=== PATIENT | female | born 1980 | race Caucasian/White ===

== ENCOUNTER 2016-05-05 06:24 | Inpatient (IN) | payer OTHER ==
[~2016-05-05] VITALS: Ht 165.1 cm; Wt 81.2 kg
[2016-05-05] VITALS (66 sets, daily range): BP systolic 101–137; BP diastolic 53–90; PULSE 63–115; TEMP 98–98.8
[2016-05-05 07:42] LABS: BASO % 0.2 % (0.0-2.0); EOS # 0.1 (0.0-0.7); EOS % 0.6 % (0-4.0); GRAN # 7.2 (1.4-6.5); GRAN % 70.8 % (42.2-75.2); HEMOGLOBIN 12.6 g/dl (12.5-16.0); LYMPH % 19.5 % (20.0-51.0); MEAN CELL VOLUME 84 fl (80.0-100.0); MEAN CORPUSCULAR HEMOGLOBIN 29 pg (27.0-31.0); MEAN CORPUSCULAR HGB CONC 35 g/dl (33.0-37.0); MEAN PLATELET VOLUME 10.3 fl (7.4-10.4); MONO # 0.9 (0.1-0.6); MONO % 8.4 % (1.7-9.3); PLATELET COUNT 193 K/mm3 (130-400); RED BLOOD COUNT 4.28 M/mm3 (4.10-5.30); REDCELL DISTRIBUTION WIDTH-CV 13.2 % (11.5-14.5); WHITE BLOOD COUNT 10.2 K/mm3 (4.8-10.8)
[2016-05-05 07:43] LABS: HEMATOCRIT 35.9 % (37.0-47.0)
[2016-05-06] VITALS (12 sets, daily range): BP systolic 103–131; BP diastolic 53–75; PULSE 70–93; TEMP 97.6–98.6
[2016-05-06 07:39] LABS: HEMOGLOBIN 11.8 g/dl (12.5-16.0)
[2016-05-06] MEDS ORDERED: IBU800 M1 PO (09:18)
[2016-05-06] MEDS ORDERED: PERCOCET 325 MG1 TA2 PO (09:18)
[2016-05-07 06:52] VITALS: BP 111/71; PULSE 67; TEMP 97.7
== END 2016-05-07 13:10 | disposition home or self-care (01) | DRG 983 ==
LOC: OB 06:24 → LDR 07:06 → OB 07:06
PROVIDERS: Obstetrics & Gynecology
PROC: 10E0XZZ Delivery of Products of Conception, External Approach (ICD-10-PCS; principal; 2016-05-05)
PROC: 0HBAXZZ Excision of Inguinal Skin, External Approach (ICD-10-PCS; 2016-05-05)
PROC: 0KQM0ZZ Repair Perineum Muscle, Open Approach (ICD-10-PCS; 2016-05-05)
PROC: 3E033VJ Introduction of Other Hormone into Peripheral Vein, Percutaneous Approach (ICD-10-PCS; 2016-05-05)
DX: O48.0 Post-term pregnancy (principal); O99.824 Streptococcus B carrier state complicating childbirth; O76 Abnormality in fetal heart rate and rhythm complicating labor and delivery; O70.1 Second degree perineal laceration during delivery; O99.72 Diseases of the skin and subcutaneous tissue complicating childbirth; L91.8 Other hypertrophic disorders of the skin; O09.43 Supervision of pregnancy with grand multiparity, third trimester; Z3A.40 40 weeks gestation of pregnancy; Z37.0 Single live birth
CPT/HCPCS: J2540; J2590; J7030; J7120